=== PATIENT | female | born 1940 | race Two or more races ===

== ENCOUNTER 2019-06-19 02:05 | Emergency (ER) | payer OTHER ==
[~2019-06-19] VITALS: Ht 188 cm; Wt 48.1 kg
== END 2019-06-19 05:47 | disposition home or self-care (01) ==
LOC: ER 02:05
DX: S70.02XA Contusion of left hip, initial encounter (principal); S70.01XA Contusion of right hip, initial encounter; W18.39XA Other fall on same level, initial encounter; Y93.89 Activity, other specified; Y92.098 Other place in other non-institutional residence as the place of occurrence of the external cause; Y99.8 Other external cause status